=== PATIENT | male | born 1990 | race Caucasian/White ===

== ENCOUNTER 2016-11-05 22:28 | Inpatient (IN) | payer SELFPAY ==
[~2016-11-05] VITALS: Ht 177.8 cm; Wt 79.0 kg
[2016-11-05 22:31] VITALS: BP 163/84; PULSE 113; RESP 18; TEMP 100.2; O2SAT 100
[2016-11-05] MEDS ORDERED: HYDROmorphone HCL PF 1 MG/ML VIAL IVS ONE (23:15)
[2016-11-05] MEDS ORDERED: SODIUM CHLOR 0.9% 1000 ML INJ 1,000 ML IV ONE ×2 (23:15)
[2016-11-05] MEDS ORDERED: KETOROLAC TROMETHAMINE 30 MG/ML (IVP) VIAL IVP ONE (23:15)
[2016-11-05] MEDS ORDERED: ONDANSETRON HCL 4 MG/2 ML VIAL IV ONE (23:15)
[2016-11-05 23:26] VITALS: RESP 18; O2SAT 99
--- NOTE | 2016-11-05 23:43 | RADRPT ---
EXAM DATE/TIME: 11/05/2016 23:16 [facility] COMPARISON: No previous studies available for comparison. INDICATIONS : Pt states that has been dehydrated and is having severe left leg cramps. MEDICAL HISTORY : None. SURGICAL HISTORY : None. ENCOUNTER: Initial ACUITY: 3 days PAIN SCORE: 7/10 LOCATION: Bilateral chest FINDINGS: A single view of the chest demonstrates the lungs to be symmetrically aerated without evidence of mas s, infiltrate or effusion. The cardiomediastinal contours are unremarkable. Osseous structures are intact. CONCLUSION: Normal examination. Colby Sandoval MD on November 05, 2016 at 23:41 Board Certified Radiologist. This report was verified electronically.
--- NOTE | 2016-11-05 23:44 | RADRPT ---
EXAM DATE/TIME: 11/05/2016 23:18 [facility] COMPARISON: No previous studies available for comparison. INDICATIONS : Pt states that has been dehydrated and is having severe left leg cramps. Redness and swelling to left lower leg. MEDICAL HISTORY : None. SURGICAL HISTORY : None. ENCOUNTER: Initial ACUITY: 3 days PAIN SCORE: 9/10 LOCATION: Left Tib-fib FINDINGS: Two view examination of the left tibia demonstrates no evidence of fracture or dislocation. Bony min eralization is normal. The soft tissue structures are intact. CONCLUSION: Unremarkable examination of the left tibia. Colby Sandoval MD on November 05, 2016 at 23:42 Board Certified Radiologist. This report was verified electronically.
[2016-11-06] VITALS (8 sets, daily range): BP systolic 112–137; BP diastolic 52–80; PULSE 82–90; RESP 15–20; TEMP 98.4–99.7; O2SAT 95–100
--- NOTE | 2016-11-06 00:05 | PD ---
HPI Chief Complaint: Musculoskeletal Complaint Time Seen by Provider: 22:58 Travel History International Travel<30 days: No Contact w/Intl Traveler<30days: No Traveled to known affect area: No History of Present Illness HPI Said 26-year-old male, history of active IV drug use, presents to the emergency department complaining of left leg pain, left arm pain, and feeling poorly. He states that he started getting left leg pain about the left ankle about a week or so ago. He's got progressively worse. Is not really able to walk on it. He 's had some intermittent ankle pain in the past but nothing this severe. He's got worsening swelling in the today he started noticing warm heat and redness in the area and so he came to the emergency department. He also has some erythema redness and tenderness on his left arm on the inside of his elbow. He does inject into his AC on that side but not into the medial side of the elbow where the tenderness is concentrated. He does get sweats at times but has not really noticed chills or fever. He does have a fever in the ED. No chest pain. No trouble breathing. No other complaints. History Past Medical History Medical History: Denies Significant Hx Tetanus Vaccination: Unknown Influenza Vaccination: No Past Surgical History Surgical History: No Previous Surgery Social History Alcohol Use: No Tobacco Use: Yes (1.2 PPD) Allergies-Medications (Allergen,Severity, Reaction): Coded Allergies: No Known Allergies (Unverified , 11/05/16) Reported Meds & Prescriptions Reported Meds & Active Scripts Active No Active Prescriptions or Reported Medications Review of Systems Except as stated in HPI: all other systems reviewed are Neg Physical Exam Narrative GENERAL: 18-year-old man, uncomfortable but nontoxic. SKIN: Focused skin assessment warm/dry. HEAD: Atraumatic. Normocephalic. EYES: Pupils equal and round. No scleral icterus. No injection or drainage. ENT: No nasal bleeding or discharge. Mucous membranes pink and moist. NECK: Trachea midline. No JVD. CARDIOVASCULAR: Heart rate rapid but regular. He has an abnormal first heart sound, but no clear murmur. RESPIRATORY: No accessory muscle use. Clear to auscultation. Breath sounds equal bilaterally. GASTROINTESTINAL: Abdomen soft, non-tender, nondistended. Hepatic and splenic margins not palpable. MUSCULOSKELETAL: Patient has erythema tenderness and swelling to the medial distal brachium and medial elbow on the left. There is no obvious fluctuance. There is a lot of tenderness and warmth. He also has edema to the distal left lower extremity. There is patchy erythema just proximal to the ankle anteriorly , with pitting edema and tenderness throughout the distal leg anteriorly. There is no calf tenderness or calf swelling. NEUROLOGICAL: Awake and alert. No obvious cranial nerve deficits. Motor grossly within normal limits. Normal speech. Data Data Last Documented VS Vital Signs Date Time Temp Pulse Resp B/P Pulse Ox O2 Delivery O2 Flow Rate FiO2 11/05/16 23:26 99 Nasal Cannula 2 11/05/16 23:26 18 11/05/16 22:31 100.2 113 163/84 Orders Electrocardiogram (11/05/16 23:08) Complete Blood Count With Diff (11/05/16 23:08) Comprehensive Metabolic Panel (11/05/16 23:08) Prothrombin Time / Inr (Pt) (11/05/16 23:08) Act Partial Throm Time (Ptt) (11/05/16 23:08) Lactic Acid Sepsis Protocol (11/05/16 23:08) Magnesium (Mg) (11/05/16 23:08) Troponin I (11/05/16 23:08) Urinalysis - C+S If Indicated (11/05/16 23:08) Blood Culture (11/05/16 23:08) Chest, Single Ap (11/05/16 23:08) Blood Glucose (11/05/16 23:08) Ecg Monitoring (11/05/16 23:08) Iv Access Insert/Monitor (11/05/16 23:08) Oximetry (11/05/16 23:08) Oxygen Administration (11/05/16 23:08) Sodium Chlor 0.9% 1000 Ml Inj (Ns 1000 M (11/05/16 23:15) Sodium Chlor 0.9% 1000 Ml Inj (Ns 1000 M (11/05/16 23:15) Ondansetron Inj (Zofran Inj) (11/05/16 23:15) Hydromorphone Pf Inj (Dilaudid Pf Inj) (11/05/16 23:15) Ketorolac Inj (Toradol Inj) (11/05/16 23:15) Ed Poc Ultrasound (11/05/16 ) Tibia/Fibula (Ap/Lat) (11/05/16 ) Cefepime Inj (Maxipime Inj) (11/06/16 00:15) Vancomycin Inj (Vancomycin Inj) (11/06/16 00:15) Potassium Chlor 20 Meq Premix (Kcl 20 Me (11/06/16 00:30) Sodium Chlor 0.9% 1000 Ml Inj (Ns 1000 M (11/06/16 00:30) Labs Laboratory Tests Test 11/05/16 11/05/16 22:50 23:20 White Blood Count 14.8 TH/MM3 Red Blood Count 4.49 MIL/MM3 Hemoglobin 13.7 GM/DL Hematocrit 39.2 % Mean Corpuscular Volume 87.4 FL Mean Corpuscular Hemoglobin 30.6 PG Mean Corpuscular Hemoglobin 35.0 % Concent Red Cell Distribution Width 12.2 % Platelet Count 341 TH/MM3 Mean Platelet Volume 8.0 FL Neutrophils (%) (Auto) 67.4 % Lymphocytes (%) (Auto) 18.2 % Monocytes (%) (Auto) 12.0 % Eosinophils (%) (Auto) 1.7 % Basophils (%) (Auto) 0.7 % Neutrophils # (Auto) 10.0 TH/MM3 Lymphocytes # (Auto) 2.7 TH/MM3 Monocytes # (Auto) 1.8 TH/MM3 Eosinophils # (Auto) 0.3 TH/MM3 Basophils # (Auto) 0.1 TH/MM3 CBC Comment DIFF FINAL Differential Comment Sodium Level 132 MEQ/L Potassium Level 2.9 MEQ/L Chloride Level 93 MEQ/L Carbon Dioxide Level 32.2 MEQ/L Anion Gap 7 MEQ/L Blood Urea Nitrogen 9 MG/DL Creatinine 0.77 MG/DL Estimat Glomerular Filtration 120 ML/MIN Rate Random Glucose 95 MG/DL Calcium Level 9.1 MG/DL Magnesium Level 1.5 MG/DL Total Bilirubin 0.3 MG/DL Aspartate Amino Transf 19 U/L (AST/SGOT) Alanine Aminotransferase 45 U/L (ALT/SGPT) Alkaline Phosphatase 63 U/L Troponin I LESS THAN 0.02 NG/ML Total Protein 7.5 GM/DL Albumin 3.2 GM/DL Prothrombin Time 10.7 SEC Prothromb Time International 1.0 RATIO Ratio Activated Partial 30.1 SEC Thromboplast Time Lactic Acid Level 1.5 mmol/L MDM Medical Decision Making Medical Screen Exam Complete: Yes Emergency Medical Condition: Yes Interpretation(s) Chest x-ray: Negative Left tib-fib x-ray: Negative My review of EKG: Sinus tachycardia rate of 105, right bundle branch block with abnormal downsloping ST elevation in V1 that could be consistent with Brugada pattern. No definite evidence of acute ischemia. Differential Diagnosis Bacteremia, cellulitis, endocarditis, other Narrative Course Medical decision making INITIAL: Is a 26-year-old man with multifocal soft tissue infection in the setting of IV drug use suspicious for bacteremia or endocarditis. He doesn't inject in the left arm. Is not injected in the left leg with area of cellulitis is. He is an abnormal first heart sound but no clear murmurs to suggest endocarditis. He appears septic with tachycardia and fever. We'll give IV antibiotics, IV fluids, check blood cultures. We'll check x-rays. I did a soft tissue ultrasound of the area of induration on the left elbow and there is no clear drainable fluid collection but it does appear to be organizing and may need to be drained in the future. Diagnosis Primary Impression: Sepsis Additional Impression: Cellulitis Admitting Information Admitting Physician Requests: Admit Scripts No Active Prescriptions or Reported Meds Colby Peralta MD Nov 06, 2016 00:05
[2016-11-06 00:11] LABS: BASOPHIL # 0.1 TH/MM3 (0-0.2); BASOPHIL % 0.7 % (0.0-2.0); EOSINOPHIL # 0.3 TH/MM3 (0-0.4); EOSINOPHIL % 1.7 % (0.0-4.0); HEMATOCRIT 39.2 % (39.0-51.0); HEMO FLAGS DIFF FINAL; LYMPH % 18.2 % (9.0-44.0); LYMPHOCYTE # 2.7 TH/MM3 (1.0-4.8); MEAN CELL VOLUME 87.4 FL (80.0-100.0); MEAN CORPUSCULAR HEMOGLOBIN 30.6 PG (27.0-34.0); NEUT % 67.4 % (16.0-70.0); PLATELET COUNT 341 TH/MM3 (150-450); RED BLOOD COUNT 4.49 MIL/MM3 (4.50-5.90); RED CELL DISTRIBUTION WIDTH 12.2 % (11.6-17.2); WHITE BLOOD COUNT 14.8 TH/MM3 (4.0-11.0)
[2016-11-06] MEDS ORDERED: VANCOMYCIN INJ 1,500 MG in SODIUM CHLORID 0.9% 500 ML INJ 500 ML IV ONE (00:15)
[2016-11-06] MEDS ORDERED: CEFEPIME INJ 2,000 MG in SODIUM CHLORIDE 0.9% INJ 100 ML IV ONE (00:15)
[2016-11-06 00:19] LABS: APTT (PATIENT) 30.1 SEC (24.3-30.1); PROTHROMBIN TIME - PATIENT 10.7 SEC (9.8-11.6)
[2016-11-06 00:23] LABS: ALKALINE PHOSPHATASE 63 U/L (45-117); ALT (GPT) 45 U/L (12-78); ANION GAP 7 MEQ/L (5-15); AST (GOT) 19 U/L (15-37); BICARBONATE 32.2 MEQ/L (21.0-32.0); BLOOD UREA NITROGEN 9 MG/DL (7-18); CHLORIDE 93 MEQ/L (98-107); GLOMERULAR FILTRATION RATE 120 ML/MIN (>89); MAGNESIUM 1.5 MG/DL (1.5-2.5); SODIUM (NA) 132 MEQ/L (136-145); TOTAL BILIRUBIN ADULT 0.3 MG/DL (0.2-1.0)
[2016-11-06 00:27] LABS: POTASSIUM 2.9 MEQ/L (3.5-5.1)
[2016-11-06] MEDS ORDERED: SODIUM CHLOR 0.9% 1000 ML INJ 1,000 ML IV SCH (00:30)
[2016-11-06] MEDS ORDERED: MAGNESIUM HYDROXIDE SUSP 30 ML CUP PO PRN (00:45)
[2016-11-06] MEDS ORDERED: ACETAMINOPHEN 325 MG TAB PO PRN (00:45)
[2016-11-06] MEDS ORDERED: Vancomycin Consult Pharmacy 1 EA OTHER SCH (00:45)
[2016-11-06] MEDS ORDERED: LACTULOSE SYRUP 20 GM/30 ML CUP PO PRN (00:45)
[2016-11-06] MEDS ORDERED: BISACODYL 10 MG SUPP RECTAL PRN (00:45)
[2016-11-06] MEDS ORDERED: SENNOSIDES 8.6 MG TAB PO PRN (00:45)
[2016-11-06] MEDS ORDERED: ONDANSETRON HCL 4 MG/2 ML VIAL IVP PRN (00:45)
[2016-11-06] MEDS: POTASSIUM CHLOR 20 MEQ PREMIX 100 ML IV SCH ×2 (00:46→02:30)
[2016-11-06] MEDS: SODIUM CHLOR 0.9% 1000 ML INJ 1,000 ML IV SCH ×3 (01:36→21:11)
--- NOTE | 2016-11-06 01:45 | HHI.HP ---
[facility] Service [facility] Primary Care Physician No Primary Care Physician Admission Diagnosis sepsis, cellulitis Diagnoses: (1) Sepsis Diagnosis: Principal (2) Cellulitis Diagnosis: Principal (3) Hypokalemia Diagnosis: Principal (4) HTN (hypertension) (5) IVDU (intravenous drug user) Diagnosis: Principal (6) Tobacco abuse Diagnosis: Principal Travel History International Travel<30 Days: No Contact w/Intl Traveler <30 Da: No Traveled to Known Affected Are: No History of Present Illness This is a 26-year-old male with a PMH of IVDU and Tobacco Abuse who presented to the ER with complaints of generalized malaise addition to left leg and left arm redness and pain x1wk. States he's had left leg pain starting one week ago , now w/ progressive redness, swelling and pain. Also notes similar symptoms to left arm, close to site of injection. Denies fever or chills. On arrival, BP 163/84, HR 113, O2 sat 100% on RA, Temp 100.2. WBC 14.8. K+ 2.9. Lactic Acid 1.5. INR 1.0. CXR normal. X-ray Left Tibia/Fibula unremarkable. S/p Blood Cultures x3, Vanc/Cefepime in ER. Review of Systems Except as stated in HPI: all other systems reviewed are Neg ROS: 14 point review of systems otherwise negative. Past Family Social History Past Medical History PMH: IVDU and Tobacco Abuse Past Surgical History PAST SURGICAL HISTORY: None Allergies: Coded Allergies: No Known Allergies (Unverified , 11/05/16) Family History PAST FAMILY HISTORY: Reviewed. No h/o DM or CAD Social History PAST SOCIAL HISTORY: Negative for occult. Smokes 1/2ppd. +IVDU. Physical Exam Vital Signs Vital Signs Date Time Temp Pulse Resp B/P Pulse Ox O2 Delivery O2 Flow Rate FiO2 11/05/16 23:26 99 Nasal Cannula 2 11/05/16 23:26 18 99 Nasal Cannula 2 11/05/16 22:50 18 11/05/16 22:31 100.2 113 18 163/84 100 Room Air Physical Exam PE: GENERAL: White male in no acute distress. HEENT: PERRLA, EOMI. No scleral icterus or conjunctival pallor. No lid lag or facial droop. CARDIOVASCULAR: Regular rate and rhythm. No obvious murmurs to auscultation. No chest tenderness to palpation. RESPIRATORY: No obvious rhonchi or wheezing. Clear to auscultation. Breath sounds equal bilaterally. GASTROINTESTINAL: Abdomen soft, non-tender, nondistended. BS normal. MUSCULOSKELETAL: Extremities without clubbing, cyanosis, or edema. No obvious deformities. LUE w/ erythema/edema to medial AC, no fluctuance noted. LLE w/ erythema/warmth to vazquez, no open lesions. NEUROLOGICAL: Awake, alert and oriented x4. No focal neurologic deficits. Moving both upper and lower extremities spontaneously. Laboratory Laboratory Tests Test 11/05/16 11/05/16 22:50 23:20 White Blood Count 14.8 Red Blood Count 4.49 Hemoglobin 13.7 Hematocrit 39.2 Mean Corpuscular Volume 87.4 Mean Corpuscular Hemoglobin 30.6 Mean Corpuscular Hemoglobin 35.0 Concent Red Cell Distribution Width 12.2 Platelet Count 341 Mean Platelet Volume 8.0 Neutrophils (%) (Auto) 67.4 Lymphocytes (%) (Auto) 18.2 Monocytes (%) (Auto) 12.0 Eosinophils (%) (Auto) 1.7 Basophils (%) (Auto) 0.7 Neutrophils # (Auto) 10.0 Lymphocytes # (Auto) 2.7 Monocytes # (Auto) 1.8 Eosinophils # (Auto) 0.3 Basophils # (Auto) 0.1 CBC Comment DIFF FINAL Differential Comment Sodium Level 132 Potassium Level 2.9 Chloride Level 93 Carbon Dioxide Level 32.2 Anion Gap 7 Blood Urea Nitrogen 9 Creatinine 0.77 Estimat Glomerular Filtration 120 Rate Random Glucose 95 Calcium Level 9.1 Magnesium Level 1.5 Total Bilirubin 0.3 Aspartate Amino Transf 19 (AST/SGOT) Alanine Aminotransferase 45 (ALT/SGPT) Alkaline Phosphatase 63 Troponin I LESS THAN 0.02 Total Protein 7.5 Albumin 3.2 Prothrombin Time 10.7 Prothromb Time International 1.0 Ratio Activated Partial 30.1 Thromboplast Time Lactic Acid Level 1.5 Date/Time Procedure Status Source Growth 11/05/16 23:00 Aerobic Blood Culture Received Blood Peripheral Pending 11/05/16 23:00 Anaerobic Blood Culture Received Blood Peripheral Pending Result Diagram: 11/05/16224911/05/162249 Assessment and Plan Problem List: (1) Sepsis ICD Code: A41.9 Status: Acute (2) Cellulitis ICD Code: L03.90 Status: Acute (3) Hypokalemia ICD Code: E87.6 Status: Acute (4) HTN (hypertension) ICD Code: I10 Status: Acute (5) IVDU (intravenous drug user) ICD Code: F19.90 Status: Acute (6) Tobacco abuse ICD Code: Z72.0 Status: Acute Assessment and Plan A/P: 1. Sepsis: Temp 100.2, HR 113, WBC 14, Source-LLE/LLE Cellulitis, IVDU. S/p Blood Cultures, Vanc/Cefepime in ER, follow up cultures, continue w/ IV Abx. 2. Cellulitis: LUE/LLE, sites near recent injection. No fluctuance noted. Continue w/ IV Abx as above. 3. Hypokalemia: K+ 2.9, s/p replacement in ER, will recheck and replace as needed. 4. HTN: BP 160's on arrival, likely compounded by pain complaints/acute infection. Will monitor. 5. IVDU: +IVDU w/ sepsis, concern for possible endocarditis. Follow up cultures as above. Check Echo. Ativan prn for withdrawal. 6. Tobacco Abuse: Pt counselled. NicoDerm prn if needed. 7. DVT Prophylaxis: SCD/Teds. 8. Social work for d/c planning as needed. 9. Case discussed w/ ER physician at length. Physician Certification 2 Midnight Certification Type: Admission for Inpatient Services Order for Inpatient Services The services are ordered in accordance with Medicare regulations or non- Medicare payer requirements, as applicable. In the case of services not specified as inpatient-only, they are appropriately provided as inpatient services in accordance with the 2-midnight benchmark. Estimated LOS (days): 2 days is the estimated time the patient will need to remain in the hospital, assuming treatment plan goals are met and no additional complications. Post-Hospital Plan: Not yet determined Kalpana Fregoso MD Nov 06, 2016 01:45
[2016-11-06] MEDS: SODIUM CHLORIDE 0.9% FLUSH 10 ML FLUSH IV FLUSH SCH ×2 (09:00→21:00)
[2016-11-06] MEDS: DOCUSATE SODIUM 50 MG/SENNA 8.6 MG TAB PO SCH ×2 (09:00→21:10)
[2016-11-06] MEDS: VANCOMYCIN 1,500 MG/NS 500 ML IV SCH ×4 (11:19→22:31)
--- NOTE | 2016-11-06 12:08 | ECHRPT ---
Indication: sepsis possible endocarditis CONCLUSIONS Normal left ventricular size. Mild concentric left ventricular hypertrophy. The left ventricular systolic function is normal with an estimated ejection fraction in the range of 55-60%. No regional wall motion abnormalities are present. Trace mitral valve regurgitation. There is trace tricuspid valve regurgitation. Cannot rule out tricuspid valve vegetationThe pulmonary valve is not well visualized. Trivial pulm onary valve regurgitation. The inferior vena cava was not well visualized. BP: / HR: Rhythm: MEASUREMENTS (Male / Female) Normal Values Technical Quality:Fair 2D ECHO LV Diastolic Diameter PLAX 5.1 cm 4.2 - 5.9 / 3.9 - 5.3 cm LV Systolic Diameter PLAX 3.8 cm IVS Diastolic Thickness 1.3 cm 0.6 - 1.0 / 0.6 - 0.9 cm LVPW Diastolic Thickness 1.4 cm 0.6 - 1.0 / 0.6 - 0.9 cm LV Relative Wall Thickness 0.5 RV Internal Dim ED PLAX 3.0 cm M-MODE Aortic Root Diameter MM 3.1 cm LA Systolic Diameter MM 3.1 cm LA Ao Ratio MM 1.0 AV Cusp Separation MM 2.1 cm DOPPLER Mitral E Point Velocity 78.5 cm/s Mitral A Point Velocity 79.5 cm/s Mitral E to A Ratio 1.0 LV E' Lateral Velocity 11.1 cm/s Mitral E to LV E' Lateral Ratio 7.1 LV E' Septal Velocity 10.2 cm/s Mitral E to LV E' Septal Ratio 7.7 TR Peak Velocity 239.0 cm/s TR Peak Gradient 22.8 mmHg FINDINGS LEFT VENTRICLE Normal left ventricular size. Mild concentric left ventricular hypertrophy. The left ventricular systolic function is normal with an estimated ejection fraction in the range of 55-60%. No regional wall motion abnormalities are present. RIGHT VENTRICLE Normal right ventricular size and systolic function. LEFT ATRIUM The left atrial size is normal. RIGHT ATRIUM The right atrial size is normal. ATRIAL SEPTUM Normal atrial septal thickness without atrial level shunting by limited color doppler interrogation. AORTA The aortic root and proximal ascending aorta are normal in size on limited imaging. MITRAL VALVE Structurally normal mitral valve. Trace mitral valve regurgitation. AORTIC VALVE Trileaflet aortic valve. No aortic valve stenosis or regurgitation. TRICUSPID VALVE Structurally normal tricuspid valve. There is trace tricuspid valve regurgitation. Cannot rule out tricuspid valve vegetation PULMONARY VALVE The pulmonary valve is not well visualized. Trivial pulmonary valve regurgitation. VESSELS The inferior vena cava was not well visualized. PERICARDIUM No pericardial effusion. Dwayne Delgado MD (Electronically Signed) Final Date:06 November 2016 12:07
--- NOTE | 2016-11-06 12:56 | HHI.PR ---
Subjective Remarks No acute events overnight. Afebrile, vital signs stable. Patient continues to complain of severe pain in his left arm and left leg. He states the pain is worse with movement. His pain medication is not helping with the pain. Objective Vitals Vital Signs Date Time Temp Pulse Resp B/P Pulse Ox O2 Delivery O2 Flow Rate FiO2 11/06/16 10:08 Room Air 11/06/16 05:19 99.7 82 18 112/62 95 11/06/16 02:53 98.7 86 20 112/57 96 11/06/16 01:00 99.2 85 15 137/52 100 Room Air 11/05/16 23:26 99 Nasal Cannula 2 11/05/16 23:26 18 99 Nasal Cannula 2 11/05/16 22:50 18 11/05/16 22:31 100.2 113 18 163/84 100 Room Air I/O 11/05/16 11/05/16 11/05/16 11/06/16 11/06/16 11/06/16 07:00 15:00 23:00 07:00 15:00 23:00 Output Total 500 ml Balance -500 ml Output Urine Total 500 ml Result Diagram: 11/05/16224911/05/162249 Objective Remarks GENERAL: White male in no acute distress. HEENT: PERRLA, EOMI. No scleral icterus or conjunctival pallor. No lid lag or facial droop. CARDIOVASCULAR: Regular rate and rhythm. No obvious murmurs to auscultation. No chest tenderness to palpation. RESPIRATORY: No obvious rhonchi or wheezing. Clear to auscultation. Breath sounds equal bilaterally. GASTROINTESTINAL: Abdomen soft, non-tender, nondistended. BS normal. MUSCULOSKELETAL: Extremities without clubbing, cyanosis, or edema. No obvious deformities. LUE warm w/ erythema/edema to medial AC, no fluctuance noted. LLE w/ erythema/warmth to vazquez, no open lesions. NEUROLOGICAL: Awake, alert and oriented x4. No focal neurologic deficits. Moving both upper and lower extremities spontaneously. A/P Problem List: (1) Sepsis ICD Code: A41.9 Status: Acute (2) Cellulitis ICD Code: L03.90 Status: Acute (3) Hypokalemia ICD Code: E87.6 Status: Acute (4) HTN (hypertension) ICD Code: I10 Status: Acute (5) IVDU (intravenous drug user) ICD Code: F19.90 Status: Acute (6) Tobacco abuse ICD Code: Z72.0 Status: Acute Assessment and Plan 1. Sepsis: Source-LLE/LLE Cellulitis, IVDU. S/p Blood Cultures - NG x 1 day. Cont Vanc/Cefepime. 2. Cellulitis: LUE/LLE, sites near recent injection. No fluctuance noted. Continue w/ IV Abx as above. 3. Hypokalemia: K+ 2.9, s/p replacement, will recheck and replace as needed. 4. HTN: BP 160's on arrival, likely compounded by pain complaints/acute infection. Improved since admission. Continue to monitor. 5. IVDU: +IVDU w/ sepsis, concern for possible endocarditis. Echo significant for trace tricuspid regurgitation thick cannot rule out vegetation. Ativan prn for withdrawal. Oxycodone morphine for pain. 6. Tobacco Abuse: Pt counselled. NicoDerm prn if needed. 7. DVT Prophylaxis: SCD/Teds. Discharge Planning Pending clinical improvement Arabella Rosenberg MD R3 Nov 06, 2016 12:56
[2016-11-06 13:51] LABS: AUTOMATED NEUTROPHIL # 10.4 TH/MM3 (1.8-7.7); BASOPHIL # 0.1 TH/MM3 (0-0.2); BASOPHIL % 0.5 % (0.0-2.0); EOSINOPHIL # 0.3 TH/MM3 (0-0.4); EOSINOPHIL % 1.7 % (0.0-4.0); HEMATOCRIT 37.9 % (39.0-51.0); LYMPH % 15.5 % (9.0-44.0); LYMPHOCYTE # 2.4 TH/MM3 (1.0-4.8); MEAN CELL VOLUME 87.5 FL (80.0-100.0); MEAN CORPUSCULAR HEMOGLOBIN 29.8 PG (27.0-34.0); MEAN CORPUSCULAR HGB CONC 34.1 % (32.0-36.0); MONO % 14.1 % (0.0-8.0); NEUT % 68.2 % (16.0-70.0); PLATELET COUNT 317 TH/MM3 (150-450); RED BLOOD COUNT 4.33 MIL/MM3 (4.50-5.90); RED CELL DISTRIBUTION WIDTH 12.3 % (11.6-17.2); WHITE BLOOD COUNT 15.3 TH/MM3 (4.0-11.0)
[2016-11-06 13:52] LABS: HEMO FLAGS AUTO DIFF
[2016-11-06 14:14] LABS: BASOPHILS 1 % (0-2); EOSINOPHILS 1 % (0-4); NEUTROPHIL # MANUAL DIFF 9.5 TH/MM3 (1.8-7.7); PLATELET ESTIMATE SMEAR NORMAL (NORMAL); POLYS (SEG NEUTROPHILS) 62 % (16-70); WBC DIFF SAMPLE 100
[2016-11-06 14:15] LABS: PLATELET MORPHOLOGY NORMAL (NORMAL); SCAN/DIFF FINAL DIFF MANUAL
[2016-11-06] MEDS: MORPHINE SULFATE 4 MG/ML INJ IV PUSH PRN ×3 (14:19→22:30)
[2016-11-06 14:23] LABS: BICARBONATE 31.7 MEQ/L (21.0-32.0); POTASSIUM 3.2 MEQ/L (3.5-5.1)
[2016-11-06] MEDS: CEFEPIME INJ 1,000 MG in SODIUM CHLORIDE 0.9% INJ 100 ML IV SCH (14:24)
--- NOTE | 2016-11-06 15:51 | EKG ---
Date Performed: 11/05/2016 Time Performed: 23:13:13 PTAGE: 26 years EKG: INCOMPLETE RIGHT BUNDLE BRANCH BLOCK SINUS TACHYCARDIA No previous for comparison ABNORMAL RHYTHM ECG NO PREVIOUS TRACING DOCTOR: Lane Reed Interpretating Date/Time 11/06/2016 15:50:48
[2016-11-06] MEDS ORDERED: POTASSIUM CHLORIDE 20 MEQ CONTROLLED RELEASE TAB PO ONE (16:00)
[2016-11-07] VITALS (8 sets, daily range): BP systolic 113–145; BP diastolic 65–80; PULSE 75–88; RESP 18–21; TEMP 98.1–100.1; O2SAT 95–99
[2016-11-07] MEDS: CEFEPIME INJ 1,000 MG in SODIUM CHLORIDE 0.9% INJ 100 ML IV SCH ×2 (01:28→13:41)
[2016-11-07] MEDS: SODIUM CHLOR 0.9% 1000 ML INJ 1,000 ML IV SCH ×2 (01:29→16:59)
[2016-11-07] MEDS: MORPHINE SULFATE 4 MG/ML INJ IV PUSH PRN ×4 (05:08→21:12)
[2016-11-07 08:42] LABS: AUTOMATED NEUTROPHIL # 13.7 TH/MM3 (1.8-7.7); BASOPHIL # 0.1 TH/MM3 (0-0.2); BASOPHIL % 0.3 % (0.0-2.0); EOSINOPHIL # 0.3 TH/MM3 (0-0.4); EOSINOPHIL % 1.6 % (0.0-4.0); HEMATOCRIT 37.9 % (39.0-51.0); HEMO FLAGS DIFF FINAL; LYMPH % 11.1 % (9.0-44.0); MEAN CELL VOLUME 88.6 FL (80.0-100.0); MEAN CORPUSCULAR HEMOGLOBIN 30.3 PG (27.0-34.0); MEAN CORPUSCULAR HGB CONC 34.2 % (32.0-36.0); MONO % 11.6 % (0.0-8.0); NEUT % 75.4 % (16.0-70.0); PLATELET COUNT 336 TH/MM3 (150-450); RED BLOOD COUNT 4.28 MIL/MM3 (4.50-5.90); RED CELL DISTRIBUTION WIDTH 12.3 % (11.6-17.2); WHITE BLOOD COUNT 18.2 TH/MM3 (4.0-11.0)
[2016-11-07] MEDS: SODIUM CHLORIDE 0.9% FLUSH 10 ML FLUSH IV FLUSH SCH ×2 (09:00→21:11)
[2016-11-07 09:13] LABS: ALT (GPT) 36 U/L (12-78); ANION GAP 8 MEQ/L (5-15); AST (GOT) 22 U/L (15-37); BICARBONATE 29.1 MEQ/L (21.0-32.0); BLOOD UREA NITROGEN 5 MG/DL (7-18); CHLORIDE 99 MEQ/L (98-107); GLOMERULAR FILTRATION RATE 154 ML/MIN (>89); POTASSIUM 3.6 MEQ/L (3.5-5.1); SODIUM (NA) 136 MEQ/L (136-145)
[2016-11-07] MEDS: DOCUSATE SODIUM 50 MG/SENNA 8.6 MG TAB PO SCH ×2 (09:16→21:11)
[2016-11-07 09:28] LABS: ALKALINE PHOSPHATASE 54 U/L (45-117); TOTAL BILIRUBIN ADULT 0.4 MG/DL (0.2-1.0)
[2016-11-07] MEDS ORDERED: PHARMACY ORDERED LAB ONE (11:45)
[2016-11-07] MEDS: VANCOMYCIN 1,500 MG/NS 500 ML IV SCH ×4 (12:37→21:11)
--- NOTE | 2016-11-07 15:18 | HHI.PR ---
Subjective Remarks Patient complaining of left arm pain. States that it's about the same and has not improved. Denies any chest pain, shortness of breath, nausea or vomiting. He is able to move his fingers. He was told today to elevate his arm. Objective Vitals Vital Signs Date Time Temp Pulse Resp B/P Pulse Ox O2 Delivery O2 Flow Rate FiO2 11/07/16 15:08 20 11/07/16 12:36 18 11/07/16 12:00 98.1 75 18 128/65 97 11/07/16 10:12 87 11/07/16 08:00 98.1 88 20 113/74 99 11/07/16 05:08 20 11/07/16 04:00 98.7 87 21 119/80 98 11/07/16 00:00 99.0 84 20 145/68 98 11/06/16 20:00 89 11/06/16 19:53 99.4 90 20 135/79 99 11/06/16 19:53 99 Room Air 11/06/16 16:00 98.5 82 20 122/71 98 I/O 11/06/16 11/06/16 11/06/16 11/07/16 11/07/16 11/07/16 07:00 15:00 23:00 07:00 15:00 23:00 Intake Total 480 ml 720 ml 1957 ml Output Total 500 ml 450 ml 1600 ml 2045 ml Balance -500 ml 30 ml -880 ml -88 ml Intake Oral 480 ml 720 ml 960 ml IV Total 997 ml Output Urine Total 500 ml 450 ml 1600 ml 2045 ml # Bowel Movements 0 1 Result Diagram: 11/07/16 0748 11/07/16 0748 Imaging Last Impressions Chest X-Ray 11/05/16 2308 Signed Impressions: Service Date/Time: Saturday, November 05, 2016 23:16 - CONCLUSION: Normal examination. Colby Sandoval MD Tibia/Fibula X-Ray 11/05/16 0000 Signed Impressions: Service Date/Time: Saturday, November 05, 2016 23:18 - CONCLUSION: Unremarkable examination of the left tibia. Colby Sandoval MD Objective Remarks GENERAL: White male laying in bed HEENT: EOMI. CARDIOVASCULAR: Regular rate and rhythm. No obvious murmurs to auscultation. RESPIRATORY: No obvious rhonchi or wheezing. Clear to auscultation. Breath sounds equal bilaterally. GASTROINTESTINAL: Abdomen soft, non-tender, nondistended. BS normal. MUSCULOSKELETAL: LUE warm w/ erythema/edema to medial AC, no fluctuance noted. LLE w/ some erythema/warmth to vazquez, no open lesions. NEUROLOGICAL: Awake, alert and oriented x4. No focal neurologic deficits. Moving both upper and lower extremities spontaneously. A/P Problem List: (1) Sepsis ICD Code: A41.9 Status: Acute (2) Cellulitis ICD Code: L03.90 Status: Acute (3) Hypokalemia ICD Code: E87.6 Status: Acute (4) HTN (hypertension) ICD Code: I10 Status: Acute (5) IVDU (intravenous drug user) ICD Code: F19.90 Status: Acute (6) Tobacco abuse ICD Code: Z72.0 Status: Acute Assessment and Plan 1. Sepsis: Source-LLE/LLE Cellulitis, IVDU. S/p Blood Cultures - NG x 2 day. Cont Vanc/Cefepime. 2. Cellulitis: LUE/LLE, sites near recent injection. No fluctuance noted however patient does have an area of induration in the left upper extremity per patient there is no improvement. Patient has been here for 2 days. We'll get hand surgery consult and an infectious disease consult for further evaluation and recommendations. Continue w/ IV Abx as above. I will check an ultrasound of the left upper extremity to look for abscess. 3. Hypokalemia: K+ 2.9, s/p replacement, now resolved 4. HTN: Better controlled. Continue to monitor. 5. IVDU: +IVDU w/ sepsis, concern for possible endocarditis. Echo significant for trace tricuspid regurgitation thick cannot rule out vegetation however blood cultures thus far have been negative. ID has been consulted and awaiting further recommendations.. Ativan prn for withdrawal. Oxycodone morphine for pain. 6. Tobacco Abuse: Pt counselled. NicoDerm prn if needed. 7. DVT Prophylaxis: SCD/Teds. Discharge Planning Hand surgery and infectious disease has been consulted. DC pending further improvement and awaiting final recommendations. Elevated left upper extremity above heart level. Coty Gan MD Nov 07, 2016 15:18
[2016-11-07] MEDS ORDERED: LIDOCAINE HCL 2% 20 ML VIAL INFIL STA (21:37)
--- NOTE | 2016-11-07 23:13 | RADRPT ---
EXAM DATE/TIME: 11/07/2016 21:14 [facility] COMPARISON: No previous studies available for comparison. INDICATIONS : Evaluate for abscess. Redness and swelling in the antecubital fossa. History of IV drug use. MEDICAL HISTORY : IV drug use. SURGICAL HISTORY : None. ENCOUNTER: Initial ACUITY: 4-6 days PAIN SCORE: 10/10 LOCATION: Left arm. AREA EVALUATED: Left antecubital fossa. . FINDINGS: MASSES: None. FLUID COLLECTIONS: There is a 4.9 x 5.4 x 1.9 cm hypoechoic ill-defined fluid collection in the anterior cubital fossa. This demonstrates low level internal echogenicity and increased color flow. OTHER: Negative. CONCLUSION: Complex fluid collection in the anterior cubital fossa. The finding is nonspecific an d could represent an abscess or seroma. Sherman Patino MD on November 07, 2016 at 23:09 Board Certified Radiologist. This report was verified electronically.
--- NOTE | 2016-11-07 23:46 | RADRPT ---
EXAM DATE/TIME: 11/07/2016 21:44 [facility] COMPARISON: No previous studies available for comparison. INDICATIONS : Left elbow pain and swelling, abscess, possible foreign body. MEDICAL HISTORY : None. SURGICAL HISTORY : None. ENCOUNTER: Initial ACUITY: 2 days PAIN SCORE: 10/10 LOCATION: Left medial elbow. FINDINGS: There is prominent soft tissue swelling about the elbow, more prominent in the antecubital region. N o significant posterior soft tissue swelling. No displacement of the anterior fat pad.. No radiopaq ue foreign bodies seen. The osseous structures are grossly intact. CONCLUSION: Marked antecubital soft tissue swelling. Serafin Chang MD on November 07, 2016 at 23:44 Board Certified Radiologist. This report was verified electronically.
[2016-11-08] VITALS: BP 116/63; PULSE 85; RESP 19; TEMP 98.7; O2SAT 98
[2016-11-08] MEDS: CEFEPIME INJ 1,000 MG in SODIUM CHLORIDE 0.9% INJ 100 ML IV SCH ×2 (01:30→13:00)
[2016-11-08] MEDS: MORPHINE SULFATE 4 MG/ML INJ IV PUSH PRN ×5 (01:31→20:35)
[2016-11-08] MEDS: SODIUM CHLOR 0.9% 1000 ML INJ 1,000 ML IV SCH ×3 (02:42→20:36)
[2016-11-08] MEDS: VANCOMYCIN 1,500 MG/NS 500 ML IV SCH ×6 (03:56→20:33)
[2016-11-08 04:00] VITALS: BP 123/62; PULSE 85; RESP 19; TEMP 98.3; O2SAT 99
[2016-11-08] MEDS: SODIUM CHLORIDE 0.9% FLUSH 10 ML FLUSH IV FLUSH PRN (05:35)
--- NOTE | 2016-11-08 07:46 | MB ---
cc: LELIA CANO MD DATE OF CONSULTATION 11/07/[address] Gan REASON Worsening left upper extremity cellulitis. Echo cannot rule out vegetation of the tricuspid valve. Patient with history of IV drug use. Antibiotic recommendations. HISTORY OF PRESENT ILLNESS This is a 26-year-old white male who was admitted to the hospital after he presented to the emergency department on 11/05 with swelling of his left arm and also left leg pain and erythema. The patient states that he started getting cramps in his left leg over a week ago and he was having difficulty walking. He has been doing injectable IV drugs and injected Suboxone into his left arm at the antecubital fossa. The patient states that he has had chills. He also has pain in the left ankle area. The area at the left antecubital fossa is markedly swollen and indurated and tender. The left arm also is swollen above the elbow. The patient has full sleeve tattoo of the upper extremities. He had temperature of 100 degrees and the white blood cell count has increased to 18.2 today from 15.3 yesterday. Blood cultures on admission have no growth. 2-D echocardiogram was performed and tricuspid valve vegetation could not be ruled out. X-ray of the left tibia was unremarkable. The patient denies cough, shortness of breath, chest pain, nausea or vomiting. He states that the pain in his left arm is a 10/10 scale. PAST MEDICAL HISTORY 1. Right shoulder injection due to MRSA a few years ago. 2. IV drug abuse. ALLERGIES No known drug allergies. MEDICATIONS 1. Vancomycin. 2. Cefepime. 3. Morphine sulfate 4. Emilie-Colace. 5. Oxycodone. SOCIAL HISTORY The patient smokes half-a-pack of cigarettes a day. No alcohol. Positive drug use in the form of injectable Suboxone. Positive marijuana use. FAMILY HISTORY Noncontributory. REVIEW OF SYSTEMS Pertinents mentioned above in History of Present Illness. PHYSICAL EXAMINATION GENERAL: He is a well-developed male who is in moderate distress because of pain in the left upper extremity. He is awake and alert and oriented. VITAL SIGNS: Temperature of 100.1 degrees, BP 123/69, respirations 18, heart rate 86. HEENT: Head is atraumatic. Extraocular movements grossly intact, pupils reactive to light. No icterus. Oropharynx - Moist mucosa, without lesions. NECK: Supple. No adenopathy or swelling. LUNGS: Clear to auscultation. HEART: Regular rate and rhythm. No murmurs, rubs or gallops. ABDOMEN: Bowel sounds present, soft, nontender. RECTAL: Not performed. EXTREMITIES: The right antecubital fossa has an area of swelling approximately slightly larger than a golf ball and it is indurated and very tender on palpation and erythematous. Distal pulses of the left hand is intact. There is swelling of the left arm both above and below the elbow. Sensation of the skin is intact over the arm. The other extremities have no clubbing, cyanosis or edema. SKIN: No significant rash. The patient has full with tattoos of the upper extremity extending from the shoulders to the wrists. NEUROLOGIC: Nonfocal. PSYCHIATRIC: The patient is calm and cooperative. EXTREMITIES: The left ankle is swollen and the left tibia has mild erythema at the distal aspect. No embolic lesions visible. LABORATORY DATA WBC 18.2, platelets 336, 75% neutrophils, hemoglobin 13.9. Creatinine 0.62, BUN 5, sodium 136. Liver function tests normal. Vancomycin trough 5.5. IMPRESSION 1. Cellulitis of the left upper extremity in a patient with IV drug abuse and injecting into his upper extremity. 2. Abscess of the left upper extremity at the antecubital fossa in the location of IV drug injection. 3. Cellulitis of the left tibia. 4. Possible endocarditis. A 2-D echocardiogram could not rule out tricuspid valve vegetation. However, the patient has negative blood cultures to date. RECOMMENDATIONS 1. Continue vancomycin. 2. Continue cefepime. 3. Need to obtain higher levels of vancomycin. Pharmacy requested to dose the vancomycin. 4. Monitor the blood cultures. 5. Surgical evaluation for I&D of the left antecubital fossa. 6. Monitor clinical status and monitor the white blood cell count. Thank you this consultation. The patient's progress will be monitored and further recommendations will be made on followup if necessary. Lelia Cano MD FD/GEORGIE /6:37 PM /7:30 AM
[2016-11-08] MEDS: SODIUM CHLORIDE 0.9% FLUSH 10 ML FLUSH IV FLUSH SCH ×2 (07:55→20:35)
[2016-11-08 08:00] VITALS: BP 132/72; PULSE 83; PULSE 84; RESP 18; TEMP 98.2; O2SAT 97
--- NOTE | 2016-11-08 08:12 | MB ---
cc: NOEL LEE III, M.D. DATE OF CONSULTATION 11/07/2016 REASON FOR CONSULTATION The patient is a 18-year-old [id number] male who was admitted two days ago with a history of IV drug use. He came to the emergency room complaining of left leg pain, left arm pain and feeling poorly. With respect to the left arm pain, he noticed some redness and tenderness starting as well and he did do an injection just lateral to that area several days ago. PAST MEDICAL HISTORY Denied. PAST SURGICAL HISTORY Denied. SOCIAL HISTORY As and he does smoke cigarettes. ALLERGIES No known drug allergies. MEDICATIONS Outside hospital denied. IN-HOSPITAL MEDICATIONS 1. Vancomycin. 2. Cefepime. 3. Emilie-Colace. 4. Roxicodone. REVIEW OF SYSTEMS The patient is not complaining of any headaches or blurry or double vision. He is not complaining of any cough, wheezing or shortness of breath. He is not complaining of any nausea, vomiting or abdominal pain. He is not complaining of any burning, frequency or urgency with urination. He is not complaining of any night sweats, fevers or chills. He is not complaining of any spine, neck or back pain. He is not complaining of any anxiety, depression or suicidal ideations. LABORATORY STUDIES The white blood cell count is 18,200. Platelet count is 336,000. PHYSICAL EXAMINATION GENERAL: On physical examination, he is well-developed, well-nourished, in no apparent distress, lying comfortably in his bed. VITAL SIGNS: Last temperature was 100.1, pulse 86, respiratory rate 18, blood pressure 123/69. EXTREMITIES: Examination of the left upper extremity reveals full active range of motion but pain on extension of his elbow. Medial to the antecubital fossa there is an 4 x 4-cm area of edema, induration and mild fluctuance. He is neurovascularly intact throughout. All musculotendinous units are intact. Capillary refill is less than 2 seconds of all fingertips. There is no palpable epitrochlear adenopathy. IMPRESSION Cellulitis with likely abscess formation left antecubital fossa area. PLAN The plan is to go to the operating room tomorrow as the patient just ate. I will talk to the patient about doing needle aspiration at the bedside to try to get some relief and to decompress the fluid collection. Noel MD ROXANA Salinas III/GEORGIE /9:27 PM /8:02 AM
[2016-11-08] MEDS: DOCUSATE SODIUM 50 MG/SENNA 8.6 MG TAB PO SCH ×2 (09:00→20:35)
[2016-11-08] MEDS ORDERED: PHARMACY ORDERED LAB ONE (11:45)
[2016-11-08 12:00] VITALS: BP 135/72; PULSE 85; RESP 18; TEMP 99.1; O2SAT 98
[2016-11-08] MEDS ORDERED: PROPOFOL 200 MG/20 ML AMP IV ONE (12:00)
[2016-11-08 12:12] LABS: AUTOMATED NEUTROPHIL # 12.2 TH/MM3 (1.8-7.7); BASOPHIL # 0.1 TH/MM3 (0-0.2); BASOPHIL % 0.5 % (0.0-2.0); EOSINOPHIL # 0.3 TH/MM3 (0-0.4); EOSINOPHIL % 1.6 % (0.0-4.0); HEMATOCRIT 38.1 % (39.0-51.0); HEMO FLAGS DIFF FINAL; LYMPH % 12.4 % (9.0-44.0); LYMPHOCYTE # 2.1 TH/MM3 (1.0-4.8); MEAN CELL VOLUME 87.8 FL (80.0-100.0); MEAN CORPUSCULAR HEMOGLOBIN 30.4 PG (27.0-34.0); MEAN CORPUSCULAR HGB CONC 34.6 % (32.0-36.0); NEUT % 73.5 % (16.0-70.0); PLATELET COUNT 337 TH/MM3 (150-450); RED BLOOD COUNT 4.33 MIL/MM3 (4.50-5.90); RED CELL DISTRIBUTION WIDTH 12.4 % (11.6-17.2); WHITE BLOOD COUNT 16.6 TH/MM3 (4.0-11.0)
[2016-11-08] MEDS ORDERED: LIDOCAINE HCL 2% 50 ML VIAL ONE (12:54)
[2016-11-08] MEDS ORDERED: BUPIVACAINE HCL PF 0.5% 30 ML VIAL ONE (12:54)
--- NOTE | 2016-11-08 12:58 | MP ---
cc: NOEL LEE III, M.D. DATE OF SURGERY 11/07/2016 PROCEDURE Left arm abscess needle aspiration. SURGEON Noel Stein III, MD PROCEDURE The patient was made comfortable in his bed in his hospital room. Informed written consent was obtained with the nurse in the room. The maximum fluctuance was cleansed with a prepped pad and 2% plain lidocaine was infiltrated the skin and subcutaneous tissue. Following this, a 23-gauge needle was gently inserted with immediate return of pus and 10 cc of purulent fluid was aspirated until no more could be obtained with a noticeable reduction in the size of the abscess and deep swelling. Sterile dressing was applied. Hemostasis was present, neurovascularly intact distally the entire time. He tolerated the procedure well. The fluid is being sent for Gram's stain, culture and sensitivity. MD ROXANA Zafar III/GEORGIE /10:13 PM /12:50 PM
[2016-11-08] MEDS ORDERED: ceFAZolin INJ 1,000 MG VIAL ONE (13:11)
[2016-11-08] MEDS ORDERED: STERILE WATER FOR INJ 20 ML VIAL ONE (13:12)
[2016-11-08] MEDS ORDERED: LIDOCAINE HCL 2% 50 ML VIAL INFIL ONE (14:22)
[2016-11-08] MEDS ORDERED: DO NOT ADM ANY ANTICOAGULANT DRUGS PRN (14:37)
[2016-11-08] MEDS ORDERED: MIDAZOLAM HCL 2 MG/2 ML VIAL ONE (14:50)
[2016-11-08] MEDS ORDERED: *MEPERIDINE 25 MG INJ VIAL PERIprocedural Use ONLY ONE (14:51)
[2016-11-08] MEDS ORDERED: fentaNYL CITRATE 250 MCG/5 ML AMP ONE (14:51)
[2016-11-08] MEDS ORDERED: *HYDROmorphone PF 1 MG VIAL PERIprocedural Use ONLY ONE (15:00)
--- NOTE | 2016-11-08 15:48 | HHI.PR ---
Subjective Remarks Pt having pain, 10/10. just got back from OR no CP/SOB/N/V Objective Vitals Vital Signs Date Time Temp Pulse Resp B/P Pulse Ox O2 Delivery O2 Flow Rate FiO2 11/08/16 15:00 96 16 134/81 97 Room Air 11/08/16 14:45 99 24 117/92 98 Room Air 11/08/16 14:40 98.7 97 21 145/79 98 Room Air 11/08/16 12:00 99.1 85 18 135/72 98 11/08/16 12:00 18 11/08/16 09:19 18 11/08/16 08:00 98.2 84 18 132/72 97 11/08/16 08:00 83 11/08/16 07:55 Room Air 11/08/16 04:00 98.3 85 19 123/62 99 11/08/16 00:00 98.7 85 19 116/63 98 11/07/16 21:00 Room Air 11/07/16 20:00 98.9 86 18 127/73 99 11/07/16 20:00 87 11/07/16 18:40 95 Room Air 11/07/16 16:00 100.1 86 18 123/69 95 I/O 11/07/16 11/07/16 11/07/16 11/08/16 11/08/16 11/08/16 07:00 15:00 23:00 07:00 15:00 23:00 Intake Total 1957 ml 480 ml 420 ml 1421 ml 150 ml Output Total 2045 ml 2075 ml 1125 ml 1100 ml 100 ml Balance -88 ml -1595 ml -705 ml 321 ml 50 ml Intake Oral 960 ml 480 ml 420 ml 280 ml IV Total 997 ml 1141 ml Other 150 ml Output Urine Total 2045 ml 2075 ml 1125 ml 1100 ml Estimated Blood Loss 100 ml # Bowel Movements 1 0 0 0 Result Diagram: 11/08/16 1106 11/07/16 0748 Imaging Last Impressions Upper Extremity Ultrasound 11/07/16 0000 Signed Impressions: Service Date/Time: Monday, November 07, 2016 21:14 - CONCLUSION: Complex fluid collection in the anterior cubital fossa. The finding is nonspecific and could represent an abscess or seroma. Sherman Patino MD Elbow X-Ray 11/07/16 0000 Signed Impressions: Service Date/Time: Monday, November 07, 2016 21:44 - CONCLUSION: Marked antecubital soft tissue swelling. Serafin Chang MD Chest X-Ray 11/05/162307 Signed Impressions: Service Date/Time: Saturday, November 05, 2016 23:16 - CONCLUSION: Normal examination. Colby Sandoval MD Tibia/Fibula X-Ray 11/05/16 0000 Signed Impressions: Service Date/Time: Saturday, November 05, 2016 23:18 - CONCLUSION: Unremarkable examination of the left tibia. Colby Sandoval MD Objective Remarks GENERAL: White male laying in bed HEENT: EOMI. CARDIOVASCULAR: Regular rate and rhythm. No obvious murmurs to auscultation. RESPIRATORY: No obvious rhonchi or wheezing. Clear to auscultation. Breath sounds equal bilaterally. GASTROINTESTINAL: Abdomen soft, non-tender, nondistended. BS normal. MUSCULOSKELETAL: Dressing/splint over LUE LLE w/ some erythema/warmth to vazquez , no open lesions. NEUROLOGICAL: Awake, alert and oriented x4. No focal neurologic deficits. Moving both upper and lower extremities spontaneously. A/P Problem List: (1) Sepsis ICD Code: A41.9 Status: Acute (2) Cellulitis ICD Code: L03.90 Status: Acute (3) Hypokalemia ICD Code: E87.6 Status: Acute (4) HTN (hypertension) ICD Code: I10 Status: Acute (5) IVDU (intravenous drug user) ICD Code: F19.90 Status: Acute (6) Tobacco abuse ICD Code: Z72.0 Status: Acute Assessment and Plan 1. Sepsis: Source-LLE/LLE Cellulitis, IVDU. S/p Blood Cultures - NG x 2 day. Cont Vanc/Cefepime. 2. Cellulitis: LUE/LLE, sites near recent injection. hand surgery and ID following. u/s UE concerning for abscess. Pt had needle aspiration at bedside yesterday and today went to OR for I&D. 3. Hypokalemia: K+ 2.9, s/p replacement, now resolved 4. HTN: Better controlled. Continue to monitor. 5. IVDU: +IVDU w/ sepsis, concern for possible endocarditis. Echo significant for trace tricuspid regurgitation thick cannot rule out vegetation however blood cultures thus far have been negative. ID following. Ativan prn for withdrawal. Oxycodone morphine for pain. 6. Tobacco Abuse: Pt counselled. NicoDerm prn if needed. 7. DVT Prophylaxis: SCD/Teds. Discharge Planning Hand surgery and infectious disease following. DC pending further improvement and awaiting final recommendations. On admission pt had an abnormal EKG noted to have an incomplete RBBB. I was paged by RN that anesthesiologist was also concerned while pt in OR about abnormal EKG and recommended cards consult. I reviewed EKG, there is concern about Brugada pattern. Will place consult to cards for further recs Coty Gan MD Nov 08, 2016 15:48
[2016-11-08 16:00] VITALS: BP 130/77; PULSE 82; RESP 20; TEMP 97.3; O2SAT 99
[2016-11-08 20:00] VITALS: BP 129/68; PULSE 88; RESP 16; TEMP 98.8; O2SAT 98
--- NOTE | 2016-11-08 21:04 | MP ---
cc: ERNESTO GONZALEZ MD DATE OF SURGERY 11/08/2016 PREOPERATIVE DIAGNOSIS Left arm abscess. PROCEDURE Left arm abscess incision and drainage, deep SURGEON All Gonzalez III, MD PROCEDURE IN DETAIL The patient was brought to the operative room placed supine on the operating table. After the correct site and side of surgery was verified by members of each team in the room multiple times including the patient and myself and after adequate preop markings and preoperative written consent were verified by everyone, after adequate preoperative time-out was performed to everyone's satisfaction, after adequate general anesthesia had been achieved, the left upper extremity was prepped and draped in traditional sterile surgical fashion. A 50/50 mixture of 2% plain lidocaine 0.5% plain Marcaine was infiltrated into the skin and subcutaneous tissue in the area of skin flexion crease just proximal to the left elbow medially where the maximum amount of fluctuance was located. The limb was elevated for a minute with pressure held on the brachial artery. A highly placed well-padded axillary tourniquet was inflated to 200 mmHg for a total of 5 minutes. A transverse oriented incision within the skin flexion crease of the elbow was made and carried down through the skin and subcutaneous tissue. Blunt dissection was then performed and a large amount of pus was encountered and suctioned off after it was sampled and passed off the field as specimen. A counter incision proximally was made at the farthest extent. The extent of the abscess was explored and all loculations broken up. A liter's worth of antiseptic antibiotic saline solution was then used to thoroughly flush out the wound. There was no grossly infected or necrotic tissue. Bipolar electrocautery was used as needed. The axillary tourniquet was released and the hand and all the fingers on the right became immediately soft, pink and warm and had brisk capillary refill of less than 2 seconds. Hemostasis was present. There was no evidence of any active bleeding at all. One 1/2-inch Natan drain was placed through and through the two wounds and the deepest extents of the abscess cavity was packed with two separate pieces of 1/2" Iodoform packing brought out distally. The hand and arm were thoroughly cleansed and dried. A bulky soft dressing was applied. This was followed by a circumferentially placed dressing and the arm and forearm were all soft as well as the hand. The patient was awakened from anesthesia, transported to Post Anesthesia Care Unit awake in stable condition at the end of the case. Sponge, needle, instrument counts were correct at the end of the case as reported by nurses in the room. MD ROXANA Zafar III/ /2:38 PM /8:55 PM
[2016-11-09] VITALS: BP 116/70; PULSE 86; RESP 16; TEMP 98.9; O2SAT 98
[2016-11-09 04:00] VITALS: BP 121/73; PULSE 69; RESP 16; TEMP 97.9; O2SAT 98
[2016-11-09] MEDS: VANCOMYCIN 1,500 MG/NS 500 ML IV SCH ×6 (04:07→19:52)
[2016-11-09] MEDS: CEFEPIME INJ 1,000 MG in SODIUM CHLORIDE 0.9% INJ 100 ML IV SCH (04:07)
[2016-11-09] MEDS: MORPHINE SULFATE 4 MG/ML INJ IV PUSH PRN ×4 (06:20→21:06)
[2016-11-09] MEDS: SODIUM CHLORIDE 0.9% FLUSH 10 ML FLUSH IV FLUSH PRN (06:20)
[2016-11-09 07:29] LABS: AUTOMATED NEUTROPHIL # 9.5 TH/MM3 (1.8-7.7); BASOPHIL % 0.4 % (0.0-2.0); EOSINOPHIL # 0.3 TH/MM3 (0-0.4); EOSINOPHIL % 2.1 % (0.0-4.0); HEMATOCRIT 37.5 % (39.0-51.0); LYMPH % 16.5 % (9.0-44.0); LYMPHOCYTE # 2.2 TH/MM3 (1.0-4.8); MEAN CORPUSCULAR HEMOGLOBIN 30.5 PG (27.0-34.0); MEAN CORPUSCULAR HGB CONC 34.6 % (32.0-36.0); MONO % 9.6 % (0.0-8.0); NEUT % 71.4 % (16.0-70.0); PLATELET COUNT 321 TH/MM3 (150-450); RED BLOOD COUNT 4.26 MIL/MM3 (4.50-5.90); RED CELL DISTRIBUTION WIDTH 12.4 % (11.6-17.2); WHITE BLOOD COUNT 13.2 TH/MM3 (4.0-11.0)
[2016-11-09 07:34] LABS: HEMO FLAGS AUTO DIFF
[2016-11-09 07:41] LABS: BICARBONATE 29.2 MEQ/L (21.0-32.0); POTASSIUM 4.2 MEQ/L (3.5-5.1)
[2016-11-09 08:00] VITALS: BP 125/76; PULSE 71; RESP 20; TEMP 97.9; O2SAT 99
[2016-11-09] MEDS: DOCUSATE SODIUM 50 MG/SENNA 8.6 MG TAB PO SCH ×2 (08:46→19:51)
[2016-11-09 09:25] LABS: BANDS 1 % (0-6); EOSINOPHILS 3 % (0-4); MYELOCYTES 4 % (0-0); NEUTROPHIL # MANUAL DIFF 9.4 TH/MM3 (1.8-7.7); POLYS (SEG NEUTROPHILS) 66 % (16-70); WBC DIFF SAMPLE 100
[2016-11-09 09:26] LABS: SCAN/DIFF FINAL DIFF MANUAL; TOXIC GRANULATION 1+ (NORMAL)
[2016-11-09 12:00] VITALS: BP 122/70; PULSE 78; RESP 20; TEMP 97.9; O2SAT 98
[2016-11-09] MEDS: SODIUM CHLOR 0.9% 1000 ML INJ 1,000 ML IV SCH ×2 (12:29→18:42)
[2016-11-09] MEDS: SODIUM CHLORIDE 0.9% FLUSH 10 ML FLUSH IV FLUSH SCH ×2 (12:29→19:53)
--- NOTE | 2016-11-09 14:42 | HHI.PR ---
Subjective Remarks Postop day 1 left arm incision and drainage, feeling much better. Pain is controlled Objective Vital Signs Date Time Temp Pulse Resp B/P Pulse Ox O2 Delivery O2 Flow Rate FiO2 11/09/16 09:43 18 11/09/16 08:00 97.9 71 20 125/76 99 11/09/16 07:00 Room Air 11/09/16 06:25 18 11/09/16 04:00 97.9 69 16 121/73 98 11/09/16 00:00 98.9 86 16 116/70 98 11/09/16 00:00 Room Air 11/08/16 20:00 Room Air 11/08/16 20:00 98.8 88 16 129/68 98 11/08/16 16:01 18 11/08/16 16:00 97.3 82 20 130/77 99 11/08/16 15:00 96 16 134/81 97 Room Air 11/08/16 14:45 99 24 117/92 98 Room Air I/O 11/08/16 11/08/16 11/08/16 11/09/16 11/09/16 11/09/16 07:00 15:00 23:00 07:00 15:00 23:00 Intake Total 1421 ml 150 ml 360 ml 1080 ml Output Total 1100 ml 2175 ml 1100 ml 1000 ml Balance 321 ml -2025 ml -740 ml 80 ml Intake Oral 280 ml 0 ml 360 ml 240 ml IV Total 1141 ml 840 ml Other 150 ml Output Urine Total 1100 ml 2075 ml 1100 ml 1000 ml Estimated Blood Loss 100 ml # Bowel Movements 0 0 0 0 Result Diagram: 11/09/16 0616 11/09/16 0616 Objective Remarks Examination left arm wound reveals clean drainage, no evidence of any purulence , iodoform packing is removed and Natan drain left in place is neurovascularly intact throughout Induration is gone Erythema significantly improved as well Wound is palpated abscess cavity is milk and there is no purulence Edema is significantly improved as well Assessment and Plan Problem List: (1) Cellulitis Status: Acute Plan: Begin dressing changes Continue IV antibiotics until redness and swelling significantly improving culture and sensitivity is back Out of bed Okay to shower Noel Gonzalez III, MD Nov 09, 2016 14:42
--- NOTE | 2016-11-09 14:42 | HHI.IDPN ---
Note Infectious Disease Note Patient feels okay. Status post I&D of left arm. Afebrile. Left arm pain tolerable. Culture pending. PAST MEDICAL HISTORY 1. Right shoulder injection due to MRSA a few years ago. 2. IV drug abuse. ALLERGIES No known drug allergies. MEDICATIONS 1. Vancomycin. 2. Cefepime. PHYSICAL EXAMINATION GENERAL: No distress, awake and alert and oriented. HEENT: No icterus. Oropharynx - Moist mucosa, without lesions. NECK: Supple. No adenopathy or swelling. LUNGS: Clear to auscultation. HEART: Regular rate and rhythm. No murmurs, rubs or gallops. EXTREMITIES: The right arm has dressing in place. Distal pulses of the left hand is intact. Left tibia erythema is improved. The other extremities have no clubbing, cyanosis or edema. SKIN: No significant rash. NEUROLOGIC: Nonfocal. PSYCHIATRIC: The patient is calm and cooperative. IMPRESSION 1. Cellulitis of the left upper extremity in a patient with IV drug abuse and injecting into his upper extremity. 2. Abscess of the left upper extremity at the antecubital fossa in the location of IV drug injection. Staph and strep. 3. Cellulitis of the left tibia. Improved. RECOMMENDATIONS 1. Continue vancomycin. 2. Stop cefepime. 3. Monitor wound culture obtained during surgery. 4. Monitor the blood cultures. Baljit Cano MD Nov 09, 2016 14:42
--- NOTE | 2016-11-09 15:10 | HHI.PR ---
Subjective Remarks Status post I&D yesterday of left upper arm. Because relieved by surgeon today. Cultures are growing gram-positive cocci thus far. Left lower extremity is improving significantly. Patient has no new complaints. She is no longer septic. Objective Vital Signs Date Time Temp Pulse Resp B/P Pulse Ox O2 Delivery O2 Flow Rate FiO2 11/09/16 12:36 20 11/09/16 12:00 97.9 78 20 122/70 98 11/09/16 09:43 18 11/09/16 08:00 97.9 71 20 125/76 99 11/09/16 07:00 Room Air 11/09/16 04:00 97.9 69 16 121/73 98 11/09/16 00:00 98.9 86 16 116/70 98 11/09/16 00:00 Room Air 11/08/16 20:00 Room Air 11/08/16 20:00 98.8 88 16 129/68 98 11/08/16 16:01 18 11/08/16 16:00 97.3 82 20 130/77 99 I/O 11/08/16 11/08/16 11/08/16 11/09/16 11/09/16 11/09/16 07:00 15:00 23:00 07:00 15:00 23:00 Intake Total 1421 ml 150 ml 360 ml 1080 ml Output Total 1100 ml 2175 ml 1100 ml 1000 ml Balance 321 ml -2025 ml -740 ml 80 ml Intake Oral 280 ml 0 ml 360 ml 240 ml IV Total 1141 ml 840 ml Other 150 ml Output Urine Total 1100 ml 2075 ml 1100 ml 1000 ml Estimated Blood Loss 100 ml # Bowel Movements 0 0 0 0 Result Diagram: 11/09/16 0616 11/09/16 0616 Objective Remarks GENERAL: NAD, A&Ox3 HEAD: Normocephalic. NECK: Supple, trachea midline. No lymphadenopathy. EYES: No scleral icterus. No injection or drainage. CARDIOVASCULAR: Regular rate and rhythm without murmurs, gallops, or rubs. RESPIRATORY: Breath sounds equal bilaterally. No accessory muscle use. GASTROINTESTINAL: Abdomen soft, non-tender, nondistended. MUSCULOSKELETAL: No cyanosis, or edema. SKIN: Warm and dry. Mild erythema left lower extremity. Left upper extremity is bandaged. NEURO: No focal neurological deficitis. A/P Problem List: (1) HTN (hypertension) ICD Code: I10 (2) Sepsis ICD Code: A41.9 (3) Hypokalemia ICD Code: E87.6 (4) Cellulitis ICD Code: L03.90 (5) Tobacco abuse ICD Code: Z72.0 (6) IVDU (intravenous drug user) ICD Code: F19.90 Assessment and Plan Assessment and plan 26-year-old male admitted secondary to sepsis and cellulitis left lower extremity and cellulitis with abscess at the left upper extremity. Status post I&D yesterday. Cultures growing. Sepsis Resolved Continue to treat infections Cellulitis left lower extremity Cellulitis left upper extremity Abscess left upper extremity IV drug abuse Status post I&D yesterday Follow cultures Surgeon following Hypokalemia Resolved Hypertension Element of withdrawal likely Resolved Nicotine dependence Patient counseled to quit NicoDerm as needed DVT prophylaxis SCDs Discharge Planning Discharge pending further improvement and culture results Bruno Grullon MD Nov 09, 2016 15:10
[2016-11-09 16:00] VITALS: BP 119/66; PULSE 87; RESP 20; TEMP 98; O2SAT 98
[2016-11-09 20:00] VITALS: BP 120/67; PULSE 73; PULSE 75; RESP 18; TEMP 98.7; O2SAT 95
[2016-11-10] VITALS: BP 112/64; PULSE 64; RESP 16; TEMP 97.8; O2SAT 97
[2016-11-10 04:00] VITALS: BP 134/75; PULSE 65; RESP 20; TEMP 97.8; O2SAT 98
[2016-11-10] MEDS: MORPHINE SULFATE 4 MG/ML INJ IV PUSH PRN (04:07)
[2016-11-10] MEDS: VANCOMYCIN 1,500 MG/NS 500 ML IV SCH ×4 (04:07→12:00)
[2016-11-10] MEDS: SODIUM CHLOR 0.9% 1000 ML INJ 1,000 ML IV SCH (04:42)
[2016-11-10 08:00] VITALS: BP 142/72; PULSE 66; PULSE 77; RESP 20; TEMP 98.5; O2SAT 98
[2016-11-10] MEDS: DOCUSATE SODIUM 50 MG/SENNA 8.6 MG TAB PO SCH (08:15)
[2016-11-10 08:35] LABS: HEMATOCRIT 37.1 % (39.0-51.0); MEAN CELL VOLUME 88.8 FL (80.0-100.0); MEAN CORPUSCULAR HEMOGLOBIN 31.2 PG (27.0-34.0); MEAN CORPUSCULAR HGB CONC 35.2 % (32.0-36.0); PLATELET COUNT 367 TH/MM3 (150-450); RED BLOOD COUNT 4.18 MIL/MM3 (4.50-5.90); RED CELL DISTRIBUTION WIDTH 12.4 % (11.6-17.2); REVIEW FLAG FINAL; WHITE BLOOD COUNT 11.4 TH/MM3 (4.0-11.0)
[2016-11-10 09:11] LABS: BICARBONATE 29.4 MEQ/L (21.0-32.0); POTASSIUM 4.3 MEQ/L (3.5-5.1)
--- NOTE | 2016-11-10 09:34 | HHI.PR ---
Subjective Remarks Postop day 2 left arm incision and drainage. no complaints Objective Vital Signs Date Time Temp Pulse Resp B/P Pulse Ox O2 Delivery O2 Flow Rate FiO2 11/10/16 08:00 98.5 77 20 142/72 98 11/10/16 04:00 97.8 65 20 134/75 98 11/10/16 04:00 Room Air 11/10/16 00:00 Room Air 11/10/16 00:00 97.8 64 16 112/64 97 11/09/16 20:00 Room Air 11/09/16 20:00 73 11/09/16 20:00 98.7 75 18 120/67 95 11/09/16 16:00 98.0 87 20 119/66 98 11/09/16 12:36 20 11/09/16 12:00 97.9 78 20 122/70 98 11/09/16 12:00 97.9 78 20 122/70 98 11/09/16 09:43 18 I/O 11/09/16 11/09/16 11/09/16 11/10/16 11/10/16 11/10/16 07:00 15:00 23:00 07:00 15:00 23:00 Intake Total 1080 ml 720 ml 1590 ml 3178 ml Output Total 1000 ml 1275 ml 1100 ml Balance 80 ml -555 ml 490 ml 3178 ml Intake Oral 240 ml 720 ml 990 ml 360 ml IV Total 840 ml 600 ml 2818 ml Output Urine Total 1000 ml 1275 ml 1100 ml # Voids 1 2 # Bowel Movements 0 1 Result Diagram: 11/10/16 0740 11/10/16 0740 Objective Remarks Examination left arm wound reveals clean drainage, no evidence of any purulence , joshua drain removed; neurovascularly intact throughout Induration is gone Erythema is gone Wound is palpated abscess cavity is milk and there is no purulence Edema is significantly improved as well full AROM Assessment and Plan Problem List: (1) Cellulitis Status: Acute Plan: OK to d/c home from hand standpoint on PO abx 7-10 days f/u in office 1-2 weeks Out of bed Okay to shower Noel Gonzalez III, MD Nov 10, 2016 09:34
--- NOTE | 2016-11-10 11:21 | HHI.IDPN ---
Note Infectious Disease Note Patient feels okay. Sleepy. Afebrile. Left arm pain tolerable. surgical wound culture has MRSA sensitivity not available. PAST MEDICAL HISTORY 1. Right shoulder injection due to MRSA a few years ago. 2. IV drug abuse. ALLERGIES No known drug allergies. MEDICATIONS 1. Vancomycin. PHYSICAL EXAMINATION GENERAL: No distress, awake and alert and oriented. HEENT: No icterus. Oropharynx - Moist mucosa, without lesions. LUNGS: Clear. HEART: Regular rate and rhythm. No murmurs, rubs or gallops. EXTREMITIES: The right arm has two surgical stab wounds with serous drainage. (+) swelling fo area just above and below the elbow. No clubbing, cyanosis or edema. SKIN: No rash. NEUROLOGIC: Nonfocal. PSYCHIATRIC: Calm and cooperative. IMPRESSION 1. Cellulitis of the left upper extremity in a patient with IV drug abuse and injecting into his upper extremity. 2. Abscess of the left upper extremity at the antecubital fossa in the location of IV drug injection. MRSA. 3. Cellulitis of the left tibia. Improved. RECOMMENDATIONS Okay to discharge on PO Bactrim 1 DS BID x 10 days but monitor the wound culture sensitivity of the MRSA to ensure it is sensitive. If resistant he will need an alternate antibiotic. Baljit Cano MD Nov 10, 2016 11:21
[2016-11-10] MEDS ORDERED: PHARMACY ORDERED LAB ONE (11:45)
[2016-11-10 12:00] VITALS: BP 119/65; PULSE 78; RESP 20; TEMP 97.8; O2SAT 97
[2016-11-10] MEDS: SODIUM CHLORIDE 0.9% FLUSH 10 ML FLUSH IV FLUSH SCH (13:19)
[2016-11-10] MEDS ORDERED: NORC5TAB PO (14:41)
[2016-11-10] MEDS ORDERED: LACTTAB8 PO (14:41)
[2016-11-10] MEDS ORDERED: BACT800T5 PO (14:41)
[2016-11-10] MEDS ORDERED: NAPR250T PO (14:41)
--- NOTE | 2016-11-10 14:46 | HHI.DS ---
Discharge Summary Admission Date Nov 06, 2016 at 12:42 am Discharge Date: Nov 10, 2016 Admitting Diagnosis sepsis, cellulitis (1) Sepsis ICD Code: A41.9 Diagnosis: Principal (2) Cellulitis ICD Code: L03.90 Diagnosis: Principal (3) Hypokalemia ICD Code: E87.6 Diagnosis: Secondary (4) HTN (hypertension) ICD Code: I10 Diagnosis: Secondary (5) IVDU (intravenous drug user) ICD Code: F19.90 Diagnosis: Secondary (6) Tobacco abuse ICD Code: Z72.0 Diagnosis: Secondary Procedures I&D of left arm Brief History - From Admission This is a 26-year-old male with a PMH of IVDU and Tobacco Abuse who presented to the ER with complaints of generalized malaise addition to left leg and left arm redness and pain x1wk. States he's had left leg pain starting one week ago , now w/ progressive redness, swelling and pain. Also notes similar symptoms to left arm, close to site of injection. Denies fever or chills. On arrival, BP 163/84, HR 113, O2 sat 100% on RA, Temp 100.2. WBC 14.8. K+ 2.9. Lactic Acid 1.5. INR 1.0. CXR normal. X-ray Left Tibia/Fibula unremarkable. S/p Blood Cultures x3, Vanc/Cefepime in ER. CBC/BMP: 11/10/16 0740 11/10/16 0740 Significant Findings Laboratory Tests Test 11/08/16 11/08/16 11/09/16 11/10/16 11:06 11:40 06:16 07:40 White Blood Count 16.6 TH/MM3 13.2 TH/MM3 11.4 TH/MM3 (4.0-11.0) (4.0-11.0) (4.0-11.0) Red Blood Count 4.33 MIL/MM3 4.26 MIL/MM3 4.18 MIL/MM3 (4.50-5.90) (4.50-5.90) (4.50-5.90) Hematocrit 38.1 % 37.5 % 37.1 % (39.0-51.0) (39.0-51.0) (39.0-51.0) Neutrophils (%) (Auto) 73.5 % 71.4 % (16.0-70.0) (16.0-70.0) Monocytes (%) (Auto) 12.0 % 9.6 % (0.0-8.0) (0.0-8.0) Neutrophils # (Auto) 12.2 TH/MM3 9.5 TH/MM3 (1.8-7.7) (1.8-7.7) Monocytes # (Auto) 2.0 TH/MM3 1.3 TH/MM3 (0-0.9) (0-0.9) Vancomycin Level Trough 16.2 MCG/ML (5.0-10.0) Monocytes % 10 % (0-8) Neutrophils # (Manual) 9.4 TH/MM3 (1.8-7.7) Myelocytes 4 % (0-0) Toxic Granulation 1+ (NORMAL) Creatinine 0.58 MG/DL (0.60-1.30) PE at Discharge GENERAL: NAD, A&Ox3 HEAD: Normocephalic. NECK: Supple, trachea midline. No lymphadenopathy. EYES: No scleral icterus. No injection or drainage. CARDIOVASCULAR: Regular rate and rhythm without murmurs, gallops, or rubs. RESPIRATORY: Breath sounds equal bilaterally. No accessory muscle use. GASTROINTESTINAL: Abdomen soft, non-tender, nondistended. MUSCULOSKELETAL: No cyanosis, or edema. Left arm bandaged. SKIN: Warm and dry. NEURO: No focal neurological deficitis. Hospital Course Mr. Bullock is a 26-year-old male. He has a habit of IV drug abuse. He came in secondary to infections at his left arm and left lower leg. Left lower leg cellulitis. Left arm had cellulitis with abscess. I&D was performed for the abscess and he is healing now on vancomycin. Workup for infective endocarditis as an etiology showed no signs of vegetation. He showing quick improvement. ID has recommended to change to Bactrim as a treatment for the next 10 days. He is cleared for discharge by ID and surgery. Medically clear for discharge today. Pt Condition on Discharge: Stable Discharge Disposition: Discharge Home Discharge Time: <= 30 minutes Discharge Instructions DIET: Follow Instructions for: As Tolerated, No Restrictions Activities you can perform: Regular-No Restrictions Follow up Referrals: PCP Follow-up - 2 Weeks New Medications: Hydrocodone-Acetaminophen ([place]) 5-325 mg Tab 1-2 TAB PO Q6H PRN PAIN #20 Ref 0 TAB Lactobacillus Acidophilus (Lactobacillus Acidophilus) 1 Tab Tab 1 TAB PO TIDAC Nutritional Supplement #30 Ref 0 TAB Naproxen (Naproxen) 250 Mg Tab 250 MG PO BID Inflammation #10 Ref 0 TAB Sulfamethoxazole-Trimethoprim (Bactrim DS) 800-160 Mg Tab 1 TAB PO BID Infection #20 Ref 0 TAB Bruno Grullon MD Nov 10, 2016 2:46 pm
== END 2016-11-10 16:17 | disposition home or self-care (01) | DRG 872 ==
LOC: NEPC 22:28 → NEDA 11-06 00:42 → N04A 11-06 02:00
PROVIDERS: ADMIT Hospitalist; ATTEND Hospitalist
PROC: 0J9F3ZZ Drainage of Left Upper Arm Subcutaneous Tissue and Fascia, Percutaneous Approach (ICD-10-PCS; principal; 2016-11-07)
PROC: 0J9F0ZX Drainage of Left Upper Arm Subcutaneous Tissue and Fascia, Open Approach, Diagnostic (ICD-10-PCS; 2016-11-08)
DX: A41.9 Sepsis, unspecified organism (principal); I10 Essential (primary) hypertension; L03.116 Cellulitis of left lower limb; L02.414 Cutaneous abscess of left upper limb; L03.114 Cellulitis of left upper limb; B95.62 Methicillin resistant Staphylococcus aureus infection as the cause of diseases classified elsewhere; E87.6 Hypokalemia; F17.210 Nicotine dependence, cigarettes, uncomplicated; F19.10 Other psychoactive substance abuse, uncomplicated; F12.90 Cannabis use, unspecified, uncomplicated; Z86.14 Personal history of Methicillin resistant Staphylococcus aureus infection
CPT/HCPCS: 71010; 73070; 73590; 76882; 80048; 80053; 80202; 83605; 83735; 84484; 85007; 85025; 85027; 85610; 85730; 86403; 87015; 87040; 87070; 87102; 87116; 87147; 87186; 87205; 87206; 93005; 93306; 96361; 96374; 96375; J0690; J0692; J1170; J1885; J2175; J2250; J2270; J2405; J3010; J3370; J3480; J7030; J7040